=== PATIENT | female | born 1980 | race Caucasian/White ===

== ENCOUNTER 2019-04-27 09:19 | Inpatient (IN) | payer BC ==
[2019-04-27] MEDS ORDERED: fentaNYL 100 MCG/2 ML SDV IVPUSH ONE (09:34)
[2019-04-27] MEDS ORDERED: Ondansetron 4 MG/2 ML SDV IVPUSH ONE (09:35)
--- NOTE | 2019-04-27 09:42 | EDM.PDOC ---
ED HPI GENERAL MEDICAL PROBLEM - General Chief Complaint: Abdominal Pain Stated Complaint: left lower quadrant abdominal pain Time Seen by Provider: 04/27/19 09:30 Source of Information: Reports: Patient, Family History Limitations: Reports: No Limitations - History of Present Illness INITIAL COMMENTS - FREE TEXT/NARRATIVE: Patient to the emergency department today complaining of severe left lower quadrant abdominal pain that started last night. The patient's last bowel movement was today and was brown. There is no blood. There is no black or tarry stools. Denies any UTI type symptoms. The patient has nausea without vomiting. There is no back pain there is no flank pain. There is no fever there is no chills. Denies any other symptoms Onset: Gradual Duration: Day(s): (Last night) Location: Reports: Abdomen Quality: Reports: Ache, Sharp Severity: Severe Improves with: Reports: None Worsens with: Reports: Movement Associated Symptoms: Reports: Nausea/Vomiting (Nausea without vomiting). 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 Denies: Fever, Chills HEENT: Reports: No Symptoms Respiratory: Reports: No Symptoms. Denies: Shortness of Breath, Cough Cardiovascular: Reports: No Symptoms. Denies: Chest Pain GI/Abdominal: Reports: Abdominal Pain, Nausea. Denies: Black Stool, Bloody Stool, Constipation, Diarrhea, Distension, Melena, Mucous in Stool, Vomiting : Reports: No Symptoms. Denies: Discharge, Dysuria, Flank Pain, Frequency, Hematuria, Urgency Musculoskeletal: Reports: No Symptoms. Denies: Neck Pain, Back Pain Skin: Reports: No Symptoms Neurological: Reports: No Symptoms Psychiatric: Reports: No Symptoms ED EXAM, GI/ABD - Physical Exam Exam: See Below Exam Limited By: No Limitations General Appearance: Alert, WD/WN, No Apparent Distress Ears: Normal External Exam Nose: Normal Inspection Throat/Mouth: Normal Inspection, Normal Voice, No Airway Compromise Head: Atraumatic, Normocephalic Neck: Normal Inspection, Supple, Non-Tender, Full Range of Motion Respiratory/Chest: No Respiratory Distress, Lungs Clear, Normal Breath Sounds Cardiovascular: Normal Peripheral Pulses, Regular Rate, Rhythm, No Murmur GI/Abdominal Exam: Soft, No Distention, Tender (Left lower quadrant pain with palpation and guarding). No: Rigid Back Exam: Normal Inspection, Full Range of Motion Extremities: Normal Inspection, Normal Range of Motion, Non-Tender, Normal Capillary Refill Neurological: Alert, Oriented, Normal Cognition, Normal Gait, No Motor/Sensory Deficits Psychiatric: Normal Affect, Normal Mood Skin Exam: Warm, Dry, Intact, Normal Color, No Rash Course - Vital Signs Text/Narrative:: 0940 the patient has been evaluated in the emergency department, the patient will have appropriate blood work completed as well as a CT of the abdomen pelvis with IV and oral contrast to rule out any acute pathology such as colitis , diverticulitis or ovarian issues as well as others 1234 CT the abdomen pelvis is just been completed and there does appear to be a lot of stranding over the sigmoid colon, there also appears to be a large left ovarian cyst. However, the radiology reading is still pending. Based on my preliminary reading, the patient will be started on Flagyl 500 mg IV and Levaquin 750 mg IV and she will be given another dose of Dilaudid IV for pain. Once the official radiology reading is back a disposition will be made however I do suspect this patient will be admitted. 1307 radiologist confirms diverticulitis, no perforation, no abscess, will admit with IV antibx, pain meds and keep pt NPO, will reassess labs in am, Blood cx x 2 are pending Last Recorded V/S: Last Vital Signs Temp 38.3 C H 04/27/19 12:39 Pulse 83 04/27/19 10:21 Resp 24 H 04/27/19 10:21 BP 136/76 04/27/19 10:21 Pulse Ox 100 04/27/19 10:21 - Orders/Labs/Meds Orders: Active Orders 24 hr Category Date Time Status Abdomen Pelvis w Cont [CT] Stat Exams 04/27/19 09:33 Taken Levofloxacin/Dextrose 5%-Water [Levaquin in D5W 750 MG/ Med 04/27/19 12:33 Active 150 ML] 750 mg Premix Bag 1 bag IV ONETIME Sodium Chloride 0.9% [Normal Saline] 1,000 ml Med 04/27/19 09:45 Active IV ASDIRECTED metroNIDAZOLE/Normal Saline [Flagyl 500 MG in NS 100 ML Med 04/27/19 12:32 Active ] 500 mg Premix Bag 1 bag IV ONETIME Medication Orders Sodium Chloride (Normal Saline) 1,000 mls @ 125 mls/hr IV ASDIRECTED ELIJAH Last Admin: 04/27/19 10:15 Dose: 125 mls/hr Metronidazole 500 mg/ Premix 100 mls @ 100 mls/hr IV ONETIME ONE Stop: 04/27/19 13:31 Levofloxacin/Dextrose 750 mg/ (Premix) 150 mls @ 100 mls/hr IV ONETIME ONE Stop: 04/27/19 14:02 Labs: Laboratory Tests 04/27/19 04/27/19 04/27/19 Range/Units 09:32 09:32 09:32 WBC 9.4 (5.0-10.0) 10^3/uL RBC 4.30 (4.00-5.50) 10^6/uL Hgb 14.7 (12.0-16.0) g/dL Hct 41.5 (37.0-47.0) % MCV 96.5 H (82.0-94.0) fL MCH 34.2 H (27.0-32.0) pg MCHC 35.4 (33.0-38.0) g/dL RDW Coeff of Ewa 12.2 (11.0-15.0) % Plt Count 176 (150-400) 10^3/uL Neut % (Auto) 73.1 (35-85) % Lymph % (Auto) 17.3 (10-55) % Hayes % (Auto) 7.5 (0-16) % Eos % (Auto) 1.9 (0-5) % Baso % (Auto) 0.2 (0-3) % Neut # (Auto) 6.87 (1.80-7.00) 10^3/uL Lymph # (Auto) 1.62 (1.00-4.80) 10^3/uL Hayes # (Auto) 0.70 (0.00-0.80) 10^3/uL Eos # (Auto) 0.18 (0.00-0.45) 10^3/uL Baso # (Auto) 0.02 10^3/uL Sodium 141 (136-145) mEq/L Potassium 4.3 (3.5-5.0) mEq/L Chloride 102 (98-106) mEq/L Carbon Dioxide 28 (21-32) mmol/L BUN 10 (7-18) mg/dL Creatinine 0.7 (0.6-1.0) mg/dL Est Cr Clr Drug Dosing 109.92 mL/min Estimated GFR (MDRD) > 60 (>=60) mL/min Glucose 88 (75-99) mg/dL Lactic Acid (0.4-2.0) mmol/L Calcium 8.5 (8.4-10.1) mg/dL Total Bilirubin 0.7 (0.0-1.0) mg/dL AST 76 H (15-37) U/L ALT 79 H (12-78) U/L Alkaline Phosphatase 109 (46-116) U/L C-Reactive Protein 2.0 H (0.2-0.8) mg/dL Total Protein 6.9 (6.4-8.2) g/dL Albumin 3.5 (3.4-5.0) g/dL Urine Color Yellow (YELLOW) Urine Appearance Clear (CLEAR) Urine pH 7.0 (4.5-8.0) Ur Specific [place] 1.015 (1.003-1.020) Urine Protein Negative (NEGATIVE) mg/dL Urine Glucose (UA) Negative (NEGATIVE) mg/dL Urine Ketones Negative (NEGATIVE) mg/dL Urine Occult Blood Negative (NEGATIVE) Urine Nitrite Negative (NEGATIVE) Urine Bilirubin Negative (NEGATIVE) Urine Urobilinogen 0.2 (0.2-1.0) EU/dL Ur Leukocyte Esterase Negative (NEGATIVE) Urine HCG, Qual 04/27/19 04/27/19 Range/Units 09:33 10:09 WBC (5.0-10.0) 10^3/uL RBC (4.00-5.50) 10^6/uL Hgb (12.0-16.0) g/dL Hct (37.0-47.0) % MCV (82.0-94.0) fL MCH (27.0-32.0) pg MCHC (33.0-38.0) g/dL RDW Coeff of Ewa (11.0-15.0) % Plt Count (150-400) 10^3/uL Neut % (Auto) (35-85) % Lymph % (Auto) (10-55) % Hayes % (Auto) (0-16) % Eos % (Auto) (0-5) % Baso % (Auto) (0-3) % Neut # (Auto) (1.80-7.00) 10^3/uL Lymph # (Auto) (1.00-4.80) 10^3/uL Hayes # (Auto) (0.00-0.80) 10^3/uL Eos # (Auto) (0.00-0.45) 10^3/uL Baso # (Auto) 10^3/uL Sodium (136-145) mEq/L Potassium (3.5-5.0) mEq/L Chloride (98-106) mEq/L Carbon Dioxide (21-32) mmol/L BUN (7-18) mg/dL Creatinine (0.6-1.0) mg/dL Est Cr Clr Drug Dosing mL/min Estimated GFR (MDRD) (>=60) mL/min Glucose (75-99) mg/dL Lactic Acid 1.1 (0.4-2.0) mmol/L Calcium (8.4-10.1) mg/dL Total Bilirubin (0.0-1.0) mg/dL AST (15-37) U/L ALT (12-78) U/L Alkaline Phosphatase (46-116) U/L C-Reactive Protein (0.2-0.8) mg/dL Total Protein (6.4-8.2) g/dL Albumin (3.4-5.0) g/dL Urine Color (YELLOW) Urine Appearance (CLEAR) Urine pH (4.5-8.0) Ur Specific [place] (1.003-1.020) Urine Protein (NEGATIVE) mg/dL Urine Glucose (UA) (NEGATIVE) mg/dL Urine Ketones (NEGATIVE) mg/dL Urine Occult Blood (NEGATIVE) Urine Nitrite (NEGATIVE) Urine Bilirubin (NEGATIVE) Urine Urobilinogen (0.2-1.0) EU/dL Ur Leukocyte Esterase (NEGATIVE) Urine HCG, Qual Negative Meds: Medications Generic Name Dose Route Start Last Admin Trade Name Torri PRN Reason Stop Dose Admin Sodium Chloride 1,000 mls @ 125 mls/hr 04/27/19 09:45 04/27/19 10:15 Normal Saline IV 125 mls/hr ASDIRECTED ELIJAH Administration Metronidazole 500 mg/ Premix 100 mls @ 100 mls/hr 04/27/19 12:32 IV 04/27/19 13:31 ONETIME ONE Levofloxacin/Dextrose 750 mg/ 150 mls @ 100 mls/hr 04/27/19 12:33 Premix IV 04/27/19 14:02 ONETIME ONE Discontinued Medications Generic Name Dose Route Start Last Admin Trade Name Torri PRN Reason Stop Dose Admin Acetaminophen 650 mg 04/27/19 10:28 04/27/19 10:45 Tylenol PO 04/27/19 10:29 650 mg NOW ONE Administration Barium Sulfate 900 ml 04/27/19 12:30 04/27/19 12:32 Readi-Cat 2 PO 04/27/19 12:31 900 ml ONETIME ONE Administration Fentanyl 50 mcg 04/27/19 09:34 04/27/19 09:45 Sublimaze IVPUSH 04/27/19 09:35 50 mcg ONETIME ONE Administration Hydromorphone HCl 1 mg 04/27/19 10:28 04/27/19 10:45 Dilaudid IVPUSH 04/27/19 10:29 1 mg ONETIME ONE Administration Hydromorphone HCl 1 mg 04/27/19 12:34 Dilaudid IVPUSH 04/27/19 12:35 ONETIME ONE Iopamidol 100 ml 04/27/19 12:30 04/27/19 12:32 Isovue-370 (76%) IVPUSH 04/27/19 12:31 100 ml ONETIME ONE Administration Ondansetron HCl 4 mg 04/27/19 09:35 04/27/19 09:44 Zofran IVPUSH 04/27/19 09:36 4 mg ONETIME ONE Administration Departure - Departure Time of Disposition: 13:08 Disposition: Admitted As Inpatient 66 Condition: Good Clinical Impression: Abdominal pain, Sigmoid diverticulitis, Fever - Discharge Information *PRESCRIPTION DRUG MONITORING PROGRAM REVIEWED*: Not Applicable *COPY OF PRESCRIPTION DRUG MONITORING REPORT IN PATIENT DOMINIQUE: Not Applicable Referrals: PCP,Unknown [Primary Care Provider] - Forms: ED Department Discharge Sepsis Event Note - Evaluation Sepsis Screening Result: No Definite Risk - Focused Exam Vital Signs: Vital Signs Temp Pulse Resp BP Pulse Ox 04/27/19 12:39 38.3 C H 04/27/19 10:50 38.1 C 04/27/19 10:21 38.2 C H 83 24 H 136/76 100 04/27/19 09:27 35.9 C 90 24 H 138/86 96 Date Exam was Performed: 04/27/19 Time Exam was Performed: 13:07 - Problem List & Annotations (1) Abdominal pain SNOMED Code(s): 95648066 Code(s): R10.9 - UNSPECIFIED ABDOMINAL PAIN Status: Acute Priority: High Current Visit: Yes Qualifiers: Abdominal location: left lower quadrant Qualified Code(s): R10.32 - Left lower quadrant pain (2) Fever SNOMED Code(s): 391511632 Code(s): R50.9 - FEVER, UNSPECIFIED Status: Acute Priority: Medium Current Visit: Yes Qualifiers: Fever type: unspecified Qualified Code(s): R50.9 - Fever, unspecified (3) Sigmoid diverticulitis SNOMED Code(s): 124225075 Code(s): K57.32 - DVTRCLI OF LG INT W/O PERFORATION OR ABSCESS W/O BLEEDING Status: Acute Priority: High Current Visit: Yes - Problem List Review Problem List Initiated/Reviewed/Updated: Yes - My Orders Last 24 Hours: My Active Orders 04/27/19 09:33 Abdomen Pelvis w Cont [CT] Stat 04/27/19 09:45 Sodium Chloride 0.9% [Normal Saline] 1,000 ml IV ASDIRECTED 04/27/19 12:32 metroNIDAZOLE/Normal Saline [Flagyl 500 MG in NS 100 ML] 500 mg Premix Bag 1 bag IV ONETIME 04/27/19 12:33 Levofloxacin/Dextrose 5%-Water [Levaquin in D5W 750 MG/150 ML] 750 mg Premix Bag 1 bag IV ONETIME - Assessment/Plan Admission H&P: Please use this note as an admission H&P Last 24 Hours: My Active Orders 04/27/19 09:33 Abdomen Pelvis w Cont [CT] Stat 04/27/19 09:45 Sodium Chloride 0.9% [Normal Saline] 1,000 ml IV ASDIRECTED 04/27/19 12:32 metroNIDAZOLE/Normal Saline [Flagyl 500 MG in NS 100 ML] 500 mg Premix Bag 1 bag IV ONETIME 04/27/19 12:33 Levofloxacin/Dextrose 5%-Water [Levaquin in D5W 750 MG/150 ML] 750 mg Premix Bag 1 bag IV ONETIME Plan: as above
[2019-04-27] MEDS: Sodium Chloride 0.9% 1,000 ML IV SCH ×2 (10:15→21:07)
[2019-04-27 10:17] LABS: CHLORIDE,CL 102 mEq/L (98-106); SODIUM,NA 141 mEq/L (136-145)
[2019-04-27] MEDS ORDERED: HYDROmorphone 1 MG/ML Syringe IVPUSH ONE ×2 (10:28→12:34)
[2019-04-27] MEDS ORDERED: Acetaminophen 325 MG Tab PO ONE (10:28)
[2019-04-27] MEDS ORDERED: Iopamidol 755 Mg/ML 100 ML Bottle IVPUSH ONE (12:30)
[2019-04-27] MEDS ORDERED: Barium Sulfate Oral Susp 450 ML Bottle PO ONE (12:30)
[2019-04-27] MEDS ORDERED: metroNIDAZOLE/Normal Saline 500 MG in Premix Bag 1 BAG IV ONE (12:32)
[2019-04-27] MEDS ORDERED: Levofloxacin/Dextrose 5%-Water 750 MG in Premix Bag 1 BAG IV ONE (12:33)
[2019-04-27] MEDS ORDERED: Ondansetron 4 MG Tab.DIS PO PRN (13:12)
[2019-04-27] MEDS ORDERED: Sodium Chloride 0.9% 1,000 ML IV SCH (13:15)
[2019-04-27] MEDS: metroNIDAZOLE/Normal Saline 500 MG in Premix Bag 1 BAG IV SCH ×2 (13:53→21:09)
[2019-04-27] MEDS: Enoxaparin 40 MG/0.4 ML Syringe SUBCUT SCH (13:56)
[2019-04-27] MEDS: HYDROmorphone 1 MG/ML Syringe IVPUSH PRN ×3 (14:54→23:35)
[2019-04-27] MEDS: Acetaminophen 325 MG Tab PO PRN ×2 (14:56→19:24)
[2019-04-27] MEDS: Citalopram 10 MG Tab PO SCH (19:26)
[2019-04-28] MEDS: Acetaminophen 325 MG Tab PO PRN ×4 (02:56→23:14)
[2019-04-28] MEDS: Sodium Chloride 0.9% 1,000 ML IV SCH ×2 (05:26→17:09)
[2019-04-28] MEDS: metroNIDAZOLE/Normal Saline 500 MG in Premix Bag 1 BAG IV SCH ×3 (05:28→21:07)
[2019-04-28] MEDS: HYDROmorphone 1 MG/ML Syringe IVPUSH PRN ×3 (07:57→18:31)
[2019-04-28] MEDS: Enoxaparin 40 MG/0.4 ML Syringe SUBCUT SCH (14:01)
[2019-04-28] MEDS: Levofloxacin/Dextrose 5%-Water 750 MG in Premix Bag 1 BAG IV SCH (15:37)
[2019-04-28] MEDS: Citalopram 10 MG Tab PO SCH (19:52)
[2019-04-28] MEDS ORDERED: Temazepam 15 MG Cap PO PRN (21:18)
--- NOTE | 2019-04-28 21:35 | PCM.PN ---
- General Info Date of Service: 04/28/19 Admission Dx/Problem (Free Text): Diverticulitis Functional Status: Reports: Pain Controlled, Tolerating Diet, Ambulating - Review of Systems General: Reports: Fever, Weakness, Fatigue, Malaise HEENT: Reports: No Symptoms Pulmonary: Denies: Shortness of Breath, Cough Cardiovascular: Denies: Chest Pain, Edema, Lightheadedness Gastrointestinal: Reports: Abdominal Pain. Denies: Hematochezia, Melena, Nausea , Vomiting Genitourinary: Reports: No Symptoms Musculoskeletal: Reports: No Symptoms Skin: Reports: No Symptoms Neurological: Reports: No Symptoms - Patient Data Vitals - Most Recent: Last Vital Signs Temp 98.5 F 04/28/19 20:00 Pulse 88 04/28/19 20:00 Resp 20 04/28/19 20:00 BP 125/75 04/28/19 20:00 Pulse Ox 97 04/28/19 20:00 Weight - Most Recent: 262 lb 12.656 oz I&O - Last 24 Hours: Intake & Output 04/28/19 04/28/19 04/28/19 06:59 14:59 22:59 Intake Total 1100 1000 1850 Output Total 730 196 7521 Balance 650 400 150 Jb Results Last 24 Hours: Microbiology 04/27/19 13:07 Aerobic Blood Culture - Preliminary Blood NO GROWTH AFTER 1 DAY Anaerobic Blood Culture - Preliminary NO GROWTH AFTER 1 DAY 04/27/19 13:07 Aerobic Blood Culture - Preliminary Blood NO GROWTH AFTER 1 DAY Anaerobic Blood Culture - Preliminary NO GROWTH AFTER 1 DAY Med Orders - Current: Current Medications Acetaminophen (Tylenol) 650 mg PO Q4H PRN PRN Reason: Pain (Mild 1-3)/fever Last Admin: 04/28/19 15:29 Dose: 650 mg Citalopram Hydrobromide (Celexa) 40 mg PO BEDTIME ELIJAH Last Admin: 04/28/19 19:52 Dose: 40 mg Enoxaparin Sodium (Lovenox) 40 mg SUBCUT Q24H ELIJAH Last Admin: 04/28/19 14:01 Dose: 40 mg Hydromorphone HCl (Dilaudid) 1 mg IVPUSH Q4H PRN PRN Reason: Pain (moderate 4-6) Last Admin: 04/28/19 18:31 Dose: 1 mg Sodium Chloride (Normal Saline) 1,000 mls @ 125 mls/hr IV ASDIRECTED [facility] Last Admin: 04/28/19 17:09 Dose: 125 mls/hr Levofloxacin/Dextrose 750 mg/ (Premix) 150 mls @ 100 mls/hr IV Q24H [facility] Last Admin: 04/28/19 15:37 Dose: 100 mls/hr Metronidazole 500 mg/ Premix 100 mls @ 100 mls/hr IV Q8H [facility] Last Admin: 04/28/19 21:07 Dose: 100 mls/hr Sodium Chloride (Normal Saline) 1,000 mls @ 125 mls/hr IV ASDIRECTED [facility] Ondansetron HCl (Zofran Odt) 4 mg PO Q6H PRN PRN Reason: nausea, able to take PO Temazepam (Restoril) 15 mg PO BEDTIME PRN PRN Reason: Sleep Discontinued Medications Acetaminophen (Tylenol) 650 mg PO NOW ONE Stop: 04/27/19 10:29 Last Admin: 04/27/19 10:45 Dose: 650 mg Barium Sulfate (Readi-Cat 2) 900 ml PO ONETIME ONE Stop: 04/27/19 12:31 Last Admin: 04/27/19 12:32 Dose: 900 ml Fentanyl (Sublimaze) 50 mcg IVPUSH ONETIME ONE Stop: 04/27/19 09:35 Last Admin: 04/27/19 09:45 Dose: 50 mcg Hydromorphone HCl (Dilaudid) 1 mg IVPUSH ONETIME ONE Stop: 04/27/19 10:29 Last Admin: 04/27/19 10:45 Dose: 1 mg Hydromorphone HCl (Dilaudid) 1 mg IVPUSH ONETIME ONE Stop: 04/27/19 12:35 Last Admin: 04/27/19 13:26 Dose: Not Given Metronidazole 500 mg/ Premix 100 mls @ 100 mls/hr IV ONETIME ONE Stop: 04/27/19 13:31 Last Admin: 04/27/19 13:22 Dose: 100 mls/hr Levofloxacin/Dextrose 750 mg/ (Premix) 150 mls @ 100 mls/hr IV ONETIME ONE Stop: 04/27/19 14:02 Last Admin: 04/27/19 13:54 Dose: 100 mls/hr Iopamidol (Isovue-370 (76%)) 100 ml IVPUSH ONETIME ONE Stop: 04/27/19 12:31 Last Admin: 04/27/19 12:32 Dose: 100 ml Ondansetron HCl (Zofran) 4 mg IVPUSH ONETIME ONE Stop: 04/27/19 09:36 Last Admin: 04/27/19 09:44 Dose: 4 mg - Exam General: Alert, Oriented HEENT: Mucous Membr. Moist/[place] Neck: Supple Lungs: Clear to Auscultation, Normal Respiratory Effort Cardiovascular: Regular Rate, Regular Rhythm GI/Abdominal Exam: Normal Bowel Sounds, Soft, Guarding, Tender (LLQ) Extremities: Normal Inspection, No Pedal Edema Skin: Warm, Dry Neurological: No New Focal Deficit Sepsis Event Note - Evaluation Sepsis Screening Result: No Definite Risk - Focused Exam Vital Signs: Vital Signs Temp Pulse Resp BP Pulse Ox 04/28/19 20:00 98.5 F 88 20 125/75 97 04/28/19 16:00 100.8 F H 82 24 H 115/68 96 04/28/19 12:00 100.4 F 88 16 146/80 H 97 04/28/19 11:06 100.3 F Date Exam was Performed: 04/28/19 Time Exam was Performed: 21:30 - Problem List & Annotations (1) Fever SNOMED Code(s): 836527909 Code(s): R50.9 - FEVER, UNSPECIFIED Status: Acute Priority: High Current Visit: Yes Qualifiers: Fever type: unspecified Qualified Code(s): R50.9 - Fever, unspecified (2) Sigmoid diverticulitis SNOMED Code(s): 793287007 Code(s): K57.32 - DVTRCLI OF LG INT W/O PERFORATION OR ABSCESS W/O BLEEDING Status: Acute Priority: High Current Visit: Yes - Problem List Review Problem List Initiated/Reviewed/Updated: Yes - My Orders Last 24 Hours: My Active Orders 04/28/19 Lunch Advance Diet Instructions [DIET] - Assessment Assessment:: Diverticulitis - Plan Plan:: Patient continues to have abdominal pain but is controlled with Dilaudid and is using much less often as yesterday. Continues to have low grade fever. Very tender yet to LLQ with palpation. Has been NPO since admission. IV fluids infusing at 125 ml/hr. Blood pressure stable at 105/65. Blood cultures are negative thus far. Will continue with IV Dilaudid as needed for pain control. IV Levaquin and Flagyl. Start clear liquids and advance as tolerated. Repeat labs in am.
[2019-04-29] MEDS: Sodium Chloride 0.9% 1,000 ML IV SCH (01:13)
[2019-04-29] MEDS: metroNIDAZOLE/Normal Saline 500 MG in Premix Bag 1 BAG IV SCH ×2 (05:41→14:04)
[2019-04-29 07:12] LABS: CHLORIDE,CL 105 mEq/L (98-106); SODIUM,NA 141 mEq/L (136-145)
[2019-04-29] MEDS: Acetaminophen 325 MG Tab PO PRN ×2 (07:42→12:28)
[2019-04-29] MEDS: Enoxaparin 40 MG/0.4 ML Syringe SUBCUT SCH (12:29)
[2019-04-29] MEDS: Levofloxacin/Dextrose 5%-Water 750 MG in Premix Bag 1 BAG IV SCH (12:30)
--- NOTE | 2019-04-29 15:02 | PCM.DCSUM1 ---
Discharge Summary - Hospital Course Free Text/Narrative:: Edgar is a 39 year old who presented to the ER with complaints of severe left lower quadrant abdominal pain. No black or tarry stools, no bowel changes. Nauseated but no vomiting. No back or flank pain. No urinary symptoms. Patient had not had any fevers. WBC normal at 9.4, CRP of 2.0. CT scan of abdomen was done that did show acute diverticulitis of the sigmoid colon. Did not get relief of pain from Fentanyl, given several doses of Dilaudid before able to get relief. Admitted and started on Levaquin and Flagyl. Diagnosis: Stroke: No Modified [place] Scale: No Symptoms at All Modified [place] Scale Score: 0 - Discharge Data Discharge Date: 04/29/19 Discharge Disposition: Home, Self-Care 01 Condition: Good - Referral to Home Health Primary Care Physician: PCP Unobtainable - Discharge Diagnosis/Problem(s) (1) Fever SNOMED Code(s): 381885141 ICD Code: R50.9 - FEVER, UNSPECIFIED Status: Acute Priority: High Qualifiers: Fever type: unspecified Qualified Code(s): R50.9 - Fever, unspecified (2) Sigmoid diverticulitis SNOMED Code(s): 989047775 ICD Code: K57.32 - DVTRCLI OF LG INT W/O PERFORATION OR ABSCESS W/O BLEEDING Status: Acute Priority: High - Patient Summary/Data Complications: none Hospital Course: Patient is feeling much better. Has had low grade fevers through stay, improved this am. No nausea or vomiting. Pain is reduced to a low dull pain in LLQ. Has had normal bowel movement since admission. Diet has been advanced from clear liquids to regular and has tolerated well. She is up and ambulatory , tolerating well with [place]. Information on diverticulitis and diet given to patient. WBC has remained normal, CRP did increase to 17. Will discharge home on Levaquin and Flagyl. [place] for pain. Follow up with Mihaela Pena in 10 days. May need to consider colonoscopy once infection has improved. - Patient Instructions Diet: Usual Diet as Tolerated Activity: As Tolerated - Discharge Plan *PRESCRIPTION DRUG MONITORING PROGRAM REVIEWED*: Not Applicable *COPY OF PRESCRIPTION DRUG MONITORING REPORT IN PATIENT DOMINIQUE: Not Applicable Prescriptions/Med Rec: Hydrocodone/Acetaminophen [[place] 5-325 Tablet] 1 each PO Q6H #30 tablet Levofloxacin [Levaquin] 500 mg PO DAILY #10 tablet metroNIDAZOLE [Flagyl] 500 mg PO Q8H #30 tab Home Medications: Home Meds Escitalopram Oxalate [Lexapro] 20 mg PO DAILY 04/27/19 [History] Hydrocodone/Acetaminophen [[place] 5-325 Tablet] 1 each PO Q6H #30 tablet [Rx] Levofloxacin [Levaquin] 500 mg PO DAILY #10 tablet 04/29/19 [Rx] metroNIDAZOLE [Flagyl] 500 mg PO Q8H #30 tab 04/29/19 [Rx] Patient Handouts: Diverticulitis Forms: ED Department Discharge Referrals: Mihaela Pena PA-C [ED Midlevel Provider] - (Follow up with Mihaela Pena in 10 days ) - Discharge Summary/Plan Comment DC Time >30 min.: No - General Info Date of Service: 04/29/19 Admission Dx/Problem (Free Text: Diverticulitis Functional Status: Reports: Pain Controlled, Tolerating Diet, Ambulating, Urinating - Review of Systems General: Reports: Fever, Fatigue, Malaise HEENT: Reports: No Symptoms Pulmonary: Denies: Shortness of Breath, Cough Cardiovascular: Denies: Chest Pain, Edema, Lightheadedness Gastrointestinal: Reports: Abdominal Pain. Denies: Hematochezia, Melena, Nausea , Vomiting Genitourinary: Reports: No Symptoms Musculoskeletal: Reports: No Symptoms Skin: Reports: No Symptoms Neurological: Reports: No Symptoms - Patient Data Vitals - Most Recent: Last Vital Signs Temp 100 F 04/29/19 12:00 Pulse 87 04/29/19 12:00 Resp 20 04/29/19 12:00 BP 128/79 04/29/19 12:00 Pulse Ox 99 04/29/19 12:00 Weight - Most Recent: 262 lb 12.656 oz I&O - Last 24 hours: Intake & Output 04/29/19 04/29/19 04/29/19 06:59 14:59 22:59 Intake Total 1980 Output Total 1700 Balance 280 Lab Results - Last 24 hrs: Laboratory Results - last 24 hr 04/29/19 04/29/19 Range/Units 06:45 06:45 WBC 8.4 (5.0-10.0) 10^3/uL RBC 3.79 L (4.00-5.50) 10^6/uL Hgb 12.8 (12.0-16.0) g/dL Hct 37.1 (37.0-47.0) % MCV 97.9 H (82.0-94.0) fL MCH 33.8 H (27.0-32.0) pg MCHC 34.5 (33.0-38.0) g/dL RDW Coeff of Ewa 12.2 (11.0-15.0) % Plt Count 149 L (150-400) 10^3/uL Neut % (Auto) 78.4 (35-85) % Lymph % (Auto) 11.4 (10-55) % Jay % (Auto) 8.1 (0-16) % Eos % (Auto) 1.9 (0-5) % Baso % (Auto) 0.2 (0-3) % Neut # (Auto) 6.55 (1.80-7.00) 10^3/uL Lymph # (Auto) 0.95 L (1.00-4.80) 10^3/uL Jay # (Auto) 0.68 (0.00-0.80) 10^3/uL Eos # (Auto) 0.16 (0.00-0.45) 10^3/uL Baso # (Auto) 0.02 10^3/uL Sodium 141 (136-145) mEq/L Potassium 4.0 (3.5-5.0) mEq/L Chloride 105 (98-106) mEq/L Carbon Dioxide 27 (21-32) mmol/L BUN 3 L D (7-18) mg/dL Creatinine 0.6 (0.6-1.0) mg/dL Est Cr Clr Drug Dosing 128.24 mL/min Estimated GFR (MDRD) > 60 (>=60) mL/min Glucose 94 (75-99) mg/dL Calcium 8.1 L (8.4-10.1) mg/dL C-Reactive Protein 17.5 H (0.2-0.8) mg/dL BRYAN Results - Last 24 hrs: Microbiology 04/27/19 13:07 Aerobic Blood Culture - Preliminary Blood NO GROWTH AFTER 2 DAYS Anaerobic Blood Culture - Preliminary NO GROWTH AFTER 2 DAYS 04/27/19 13:07 Aerobic Blood Culture - Preliminary Blood NO GROWTH AFTER 2 DAYS Anaerobic Blood Culture - Preliminary NO GROWTH AFTER 2 DAYS Med Orders - Current: Current Medications Acetaminophen (Tylenol) 650 mg PO Q4H PRN PRN Reason: Pain (Mild 1-3)/fever Last Admin: 04/29/19 12:28 Dose: 650 mg Citalopram Hydrobromide (Celexa) 40 mg PO BEDTIME [facility] Last Admin: 04/28/19 19:52 Dose: 40 mg Enoxaparin Sodium (Lovenox) 40 mg SUBCUT Q24H [facility] Last Admin: 04/29/19 12:29 Dose: 40 mg Hydromorphone HCl (Dilaudid) 1 mg IVPUSH Q4H PRN PRN Reason: Pain (moderate 4-6) Last Admin: 04/28/19 18:31 Dose: 1 mg Sodium Chloride (Normal Saline) 1,000 mls @ 125 mls/hr IV ASDIRECTED [facility] Last Admin: 04/29/19 01:13 Dose: 125 mls/hr Levofloxacin/Dextrose 750 mg/ (Premix) 150 mls @ 100 mls/hr IV Q24H [facility] Last Admin: 04/29/19 12:30 Dose: 100 mls/hr Metronidazole 500 mg/ Premix 100 mls @ 100 mls/hr IV Q8H [facility] Last Admin: 04/29/19 05:41 Dose: 100 mls/hr Sodium Chloride (Normal Saline) 1,000 mls @ 125 mls/hr IV ASDIRECTED [facility] Ondansetron HCl (Zofran Odt) 4 mg PO Q6H PRN PRN Reason: nausea, able to take PO Temazepam (Restoril) 15 mg PO BEDTIME PRN PRN Reason: Sleep Last Admin: 04/28/19 22:07 Dose: 15 mg Discontinued Medications Acetaminophen (Tylenol) 650 mg PO NOW ONE Stop: 04/27/19 10:29 Last Admin: 04/27/19 10:45 Dose: 650 mg Barium Sulfate (Readi-Cat 2) 900 ml PO ONETIME ONE Stop: 04/27/19 12:31 Last Admin: 04/27/19 12:32 Dose: 900 ml Fentanyl (Sublimaze) 50 mcg IVPUSH ONETIME ONE Stop: 04/27/19 09:35 Last Admin: 04/27/19 09:45 Dose: 50 mcg Hydromorphone HCl (Dilaudid) 1 mg IVPUSH ONETIME ONE Stop: 04/27/19 10:29 Last Admin: 04/27/19 10:45 Dose: 1 mg Hydromorphone HCl (Dilaudid) 1 mg IVPUSH ONETIME ONE Stop: 04/27/19 12:35 Last Admin: 04/27/19 13:26 Dose: Not Given Metronidazole 500 mg/ Premix 100 mls @ 100 mls/hr IV ONETIME ONE Stop: 04/27/19 13:31 Last Admin: 04/27/19 13:22 Dose: 100 mls/hr Levofloxacin/Dextrose 750 mg/ (Premix) 150 mls @ 100 mls/hr IV ONETIME ONE Stop: 04/27/19 14:02 Last Admin: 04/27/19 13:54 Dose: 100 mls/hr Iopamidol (Isovue-370 (76%)) 100 ml IVPUSH ONETIME ONE Stop: 04/27/19 12:31 Last Admin: 04/27/19 12:32 Dose: 100 ml Ondansetron HCl (Zofran) 4 mg IVPUSH ONETIME ONE Stop: 04/27/19 09:36 Last Admin: 04/27/19 09:44 Dose: 4 mg - Exam General: Reports: Alert, Oriented HEENT: Reports: Mucous Membr. Moist/[place] Neck: Reports: Supple Lungs: Reports: Clear to Auscultation, Normal Respiratory Effort Cardiovascular: Reports: Regular Rate, Regular Rhythm GI/Abdominal Exam: Normal Bowel Sounds, Soft, Tender (LLQ but much less guarded than yesterday) Extremities: Normal Inspection, No Pedal Edema Skin: Reports: Warm, Dry Neurological: Reports: No New Focal Deficit
== END 2019-04-29 16:13 | disposition home or self-care (01) | DRG 244 ==
LOC: CC.ED 09:19 → CC.MS 13:10 → UNDOADMIN 13:12 → CC.MS 13:12 → CC.ED 13:36
PROVIDERS: ADMIT Nurse Practitioner; ATTEND Family Medicine
DX: K57.32 Diverticulitis of large intestine without perforation or abscess without bleeding (principal); N83.202 Unspecified ovarian cyst, left side; Z79.899 Other long term (current) drug therapy; Z88.2 Allergy status to sulfonamides; Z88.1 Allergy status to other antibiotic agents
CPT/HCPCS: 36415; 74177; 80048; 80053; 81003; 81025; 83605; 85025; 86140; 87040; 96374; 96375; 99285-25; A9270-GY; J1170; J1650; J1956; J2405; J3010; J3490; J7030; Q9967

== ENCOUNTER → 2019-06-17 | Day surgery (SDC) | payer BC ==
[~2019-06-17] MED LIST: Lactated Ringers 1,000 ML IV SCH; Midazolam 1 MG/ML 2 ML SDV IV ONE; Phenylephrine 1% 10 MG/ML SDV IV ONE; Propofol 200 MG/20 ML SDV IV ONE; fentaNYL 100 MCG/2 ML SDV IV ONE
--- NOTE | 2019-06-20 11:51 | OR ---
DATE OF OPERATION: 06/17/2019 PREOPERATIVE DIAGNOSIS: LEFT LOWER QUADRANT COLITIS. POSTOPERATIVE DIAGNOSIS: 1. DIVERTICULOSIS WITH RESOLVING DIVERTICULITIS. 2. SMALL RECTAL POLYP. SURGEON: George Coburn MD PROCEDURE: FULL-LENGTH COLONOSCOPY WITH BIOPSIES X3, FORCEPS POLYP REMOVAL X1. ANESTHESIA: MAC. COMPLICATIONS: None. SPECIMEN: 1. Sigmoid biopsy x3. 2. Villous polyp, rectal vault, approximately 4 to 5 mm. FINDINGS: 1. Full-length colonoscopy. 2. Mild sigmoid diverticulosis with what appears to be resolving diverticulitis, minimal evidence of. 3. Small 4 to 5 mm rectal polyp, villous, removed in its entirety with forceps. RECOMMENDATIONS: Routine followup for biopsy reports. Followup colonoscopy in 5 years given polyp removal. INDICATIONS: The patient has had multiple episodes of diverticulitis, most recently approximately 2 weeks ago. We elected to proceed with a diagnostic scope. DESCRIPTION OF PROCEDURE: The patient was prepped and draped, placed in the left lateral decubitus position. A lubricated Olympus colonoscope was inserted and easily advanced to the cecum. Direct visualization of the ileocecal valve and appendiceal orifice was accomplished. The bowel prep was adequate. Upon withdrawal of the scope, the cecum, ascending, transverse, and descending colon were completely benign. On the sigmoid colon, had some scattered diverticula from its mid to distal portion or near the rectosigmoid junction, mild in severity. At around 50 cm, the patient had about a 15 cm segment that had some very mild residual signs of colitis, likely related to her diverticula. No ulceration, bleeding sites, etc. We did do 3 biopsies of the affected area without any complication. The rectal vault appeared benign in its most distal portion. The patient had a small, flat, villous polyp about 4 to 5 mm, removed in its entirety with 2 forceps biopsies. Retroflexion showed no other perianal lesions. Air was then suctioned, scope removed without complication. DARIUSZ/DELORIS /[id number]
== END ==
LOC: CC.SDS 11:08
PROVIDERS: ATTEND Family Medicine
DX: D12.8 Benign neoplasm of rectum (principal); K57.32 Diverticulitis of large intestine without perforation or abscess without bleeding; K57.30 Diverticulosis of large intestine without perforation or abscess without bleeding; K21.9 Gastro-esophageal reflux disease without esophagitis; E66.9 Obesity, unspecified; Z68.41 Body mass index [BMI] 40.0-44.9, adult; Z88.2 Allergy status to sulfonamides
CPT/HCPCS: 36415; 45380; 84703; J2250; J2370; J2704; J3010; J7120

== ENCOUNTER 2020-04-23 08:24 | Inpatient (IN) | payer BC ==
[2020-04-23] MEDS ORDERED: Ketorolac 30 MG/ML SDV IVPUSH ONE (08:56)
[2020-04-23] MEDS ORDERED: Lactated Ringers 1,000 ML IV ONE (08:57)
[2020-04-23] MEDS: Ondansetron 4 MG/2 ML SDV IVPUSH PRN ×2 (09:06→15:38)
[2020-04-23] MEDS ORDERED: Iopamidol 755 Mg/ML 100 ML Bottle IVPUSH ONE (09:13)
[2020-04-23] MEDS ORDERED: Iopamidol 755 Mg/ML 200 ML Bottle IV ONE (09:20)
[2020-04-23 09:25] LABS: CHLORIDE,CL 98 mEq/L (98-106); SODIUM,NA 137 mEq/L (136-145)
[2020-04-23] MEDS ORDERED: HYDROmorphone 1 MG/ML Syringe IVPUSH ONE ×3 (09:53→13:59)
[2020-04-23] MEDS: Lactated Ringers 1,000 ML IV SCH ×2 (10:39→19:35)
[2020-04-23] MEDS ORDERED: Barium Sulfate Oral Susp 450 ML Bottle PO ONE (11:48)
[2020-04-23] MEDS ORDERED: metroNIDAZOLE/Normal Saline 500 MG in Premix Bag 1 BAG IV ONE (12:18)
[2020-04-23] MEDS ORDERED: Levofloxacin/Dextrose 5%-Water 500 MG in Premix Bag 1 BAG IV ONE (12:19)
[2020-04-23] MEDS ORDERED: Ketorolac 30 MG/ML SDV IVPUSH PRN (14:49)
[2020-04-23] MEDS ORDERED: Polyethylene Glycol 3350 Powder 17 GM Packet PO PRN (14:49)
[2020-04-23] MEDS ORDERED: Docusate Sodium 100 MG Cap PO PRN (14:49)
[2020-04-23] MEDS ORDERED: Ibuprofen 200 MG Tab PO PRN (14:49)
[2020-04-23] MEDS: Acetaminophen 325 MG Tab PO PRN (15:47)
[2020-04-23] MEDS: HYDROmorphone 1 MG/ML Syringe IVPUSH PRN ×2 (16:35→19:55)
--- NOTE | 2020-04-23 17:02 | EDM.PDOC ---
ED HPI GENERAL MEDICAL PROBLEM - General Chief Complaint: Abdominal Pain Stated Complaint: ABD PAIN Time Seen by Provider: 04/23/20 08:58 Source of Information: Reports: Patient History Limitations: Reports: No Limitations - History of Present Illness INITIAL COMMENTS - FREE TEXT/NARRATIVE: Edgar is a 39 year old female who presents to the ED with c/o severe left lower abdominal pain. Has history of diverticulitis and reports she ate popcorn on Thursday. She reports pain started yesterday and has worsened since. She reports she had some "left over Augmentin" from last time so she started that yesterday as she was trying to avoid coming to the ED. Has not had any fevers. Does report she had one emesis this morning. Does feel nauseated. Did not eat yesterday. Did have diarrhea x2 over the weekend. She otherwise is without complaints. Onset Date: 04/22/20 Duration: Getting Worse Location: Reports: Abdomen (LLQ) Quality: Reports: Sharp Severity: Severe Improves with: Reports: None Worsens with: Reports: Movement Associated Symptoms: Reports: Loss of Appetite, Nausea/Vomiting. Denies: Fever/Chills Left Abdominal Pain Score (Numeric/FACES): 7 - Related Data Allergies Allergy/AdvReac Type Severity Reaction Status Date / Time sulfamethoxazole Allergy Cannot Verified 04/23/20 08:36 [From Bactrim] Remember trimethoprim [From Bactrim] Allergy Cannot Verified 04/23/20 08:36 Remember Home Meds: Home Meds Escitalopram Oxalate [Lexapro] 20 mg PO DAILY 04/27/19 [History] Past Medical History Gastrointestinal History: Reports: Diverticulosis Psychiatric History: Reports: Anxiety - Past Surgical History GI Surgical History: Reports: Cholecystectomy Female Surgical History: Reports: Section Social & Family History - Family History Family Medical History: No Pertinent Family History - Tobacco Use Tobacco Use Status *Q: Current Some Day Tobacco User Years of Tobacco use: 10 Packs/Tins Daily: 0 - Alcohol Use Alcohol Use History: Yes Alcohol Use Frequency: Socially - Recreational Drug Use Recreational Drug Use: No ED ROS GENERAL - Review of Systems Review Of Systems: Comprehensive ROS is negative, except as noted in HPI. ED EXAM, GI/ABD - Physical Exam Exam: See Below Exam Limited By: No Limitations General Appearance: Alert, WD/WN, Moderate Distress Eyes: Bilateral: EOMI Throat/Mouth: Normal Inspection, Normal Lips, Normal Teeth, Normal Gums, Normal Oropharynx, Normal Voice, No Airway Compromise Head: Atraumatic, Normocephalic Neck: Normal Inspection, Supple, Non-Tender, Full Range of Motion Respiratory/Chest: No Respiratory Distress, Lungs Clear, Normal Breath Sounds, No Accessory Muscle Use, Chest Non-Tender Cardiovascular: Normal Peripheral Pulses, Regular Rate, Rhythm, No Edema, No Gallop, No JVD, No Murmur, No Rub GI/Abdominal Exam: Normal Bowel Sounds, Soft, Guarding (LLQ), Tender (LLQ). No: Rigid, Rebound Back Exam: Normal Inspection, Full Range of Motion. No: CVA Tenderness (L), CVA Tenderness (R) Extremities: Normal Inspection, Normal Range of Motion, Non-Tender, Normal Capillary Refill, No Pedal Edema Neurological: Alert, Oriented, CN II-XII Intact, Normal Cognition, Normal Gait, Normal Reflexes, No Motor/Sensory Deficits Psychiatric: Normal Affect, Normal Mood Skin Exam: Warm, Dry, Intact, Normal Color, No Rash Course - Vital Signs Last Recorded V/S: Last Vital Signs Temp 99.2 F 04/23/20 20:00 Pulse 97 04/23/20 20:00 Resp 16 04/23/20 20:00 BP 134/85 04/23/20 20:00 Pulse Ox 93 L 04/23/20 20:00 - Orders/Labs/Meds Orders: Active Orders 24 hr Category Date Time Status Abdomen Pelvis w Cont [CT] Stat Exams 04/23/20 09:01 Taken Lactated Ringers [Ringers, Lactated] 1,000 ml Med 04/23/20 10:00 Active IV ASDIRECTED Ondansetron [Zofran] Med 04/23/20 09:01 Active 4 mg IVPUSH Q6H PRN Medication Orders Acetaminophen (Tylenol) 650 mg PO Q4H PRN PRN Reason: Pain (Mild 1-3)/fever Last Admin: 04/23/20 15:47 Dose: 650 mg Documented by: DON Docusate Sodium (Colace) 100 mg PO BID PRN PRN Reason: Constipation Enoxaparin Sodium (Lovenox) 40 mg SUBCUT Q24H [facility] Last Admin: 04/23/20 20:00 Dose: 40 mg Documented by: JUVE Hydromorphone HCl (Dilaudid) 1 mg IVPUSH Q2H PRN PRN Reason: Pain (severe 7-10) Last Admin: 04/23/20 19:55 Dose: 1 mg Documented by: Admin: 04/23/20 16:35 Dose: 1 mg Documented by: KANDACE Lactated Ringer's (Ringers, Lactated) 1,000 mls @ 125 mls/hr IV ASDIRECTED [facility]IJAH Last Admin: 04/23/20 19:35 Dose: 125 mls/hr Documented by: Infusion: 04/23/20 18:39 Dose: 125 mls/hr Documented by: Admin: 04/23/20 10:39 Dose: 125 mls/hr Documented by: DON Levofloxacin/Dextrose 500 mg/ (Premix) 100 mls @ 100 mls/hr IV Q24H [facility] Metronidazole 500 mg/ Premix 100 mls @ 100 mls/hr IV Q8H [facility] Last Admin: 04/23/20 19:37 Dose: 100 mls/hr Documented by: JUVE Ketorolac Tromethamine (Toradol) 30 mg IVPUSH Q6H PRN PRN Reason: Pain (moderate 4-6) Ondansetron HCl (Zofran) 4 mg IVPUSH Q6H PRN PRN Reason: Other Last Admin: 04/23/20 15:38 Dose: 4 mg Documented by: Admin: 04/23/20 09:06 Dose: 4 mg Documented by: DON Polyethylene Glycol (Miralax) 17 gm PO DAILY PRN PRN Reason: Constipation Temazepam (Restoril) 15 mg PO BEDTIME PRN PRN Reason: Sleep Last Admin: 04/23/20 22:16 Dose: 15 mg Documented by: JUVE Labs: Laboratory Tests 04/23/20 04/23/20 04/23/20 Range/Units 08:58 09:08 09:08 WBC 6.5 (5.0-10.0) 10^3/uL RBC 4.49 (4.00-5.50) 10^6/uL Hgb 16.2 H (12.0-16.0) g/dL Hct 45.8 (37.0-47.0) % MCV 102.0 H (82.0-94.0) fL MCH 36.1 H (27.0-32.0) pg MCHC 35.4 (33.0-38.0) g/dL RDW Coeff of Ewa 13.6 (11.0-15.0) % Plt Count 107 L (150-400) 10^3/uL Neut % (Auto) 73.6 (35-85) % Lymph % (Auto) 14.9 (10-55) % [place] % (Auto) 9.8 (0-16) % Eos % (Auto) 1.4 (0-5) % Baso % (Auto) 0.3 (0-3) % Neut # (Auto) 4.81 (1.80-7.00) 10^3/uL Lymph # (Auto) 0.97 L (1.00-4.80) 10^3/uL [place] # (Auto) 0.64 (0.00-0.80) 10^3/uL Eos # (Auto) 0.09 (0.00-0.45) 10^3/uL Baso # (Auto) 0.02 10^3/uL Sodium 137 (136-145) mEq/L Potassium 3.6 (3.5-5.0) mEq/L Chloride 98 (98-106) mEq/L Carbon Dioxide 24 (21-32) mmol/L BUN 5 L (7-18) mg/dL Creatinine 0.8 (0.6-1.0) mg/dL Est Cr Clr Drug Dosing 91.81 mL/min Estimated GFR (MDRD) > 60 (>=60) mL/min Glucose 89 (75-99) mg/dL Calcium 9.2 (8.4-10.1) mg/dL Total Bilirubin 1.8 H (0.0-1.0) mg/dL AST 265 H (15-37) U/L ALT 199 H (12-78) U/L Alkaline Phosphatase 119 H (46-116) U/L C-Reactive Protein 3.1 H (0.2-0.8) mg/dL Total Protein 6.9 (6.4-8.2) g/dL Albumin 3.4 (3.4-5.0) g/dL Amylase 33 (25-115) U/L Lipase 298 (73-393) U/L Urine Color Dark yellow (YELLOW) Urine Appearance Slightly cloudy (CLEAR) Urine pH 6.0 (4.5-8.0) Ur Specific [place] >= 1.030 H (1.003-1.020) Urine Protein Negative (NEGATIVE) mg/dL Urine Glucose (UA) Negative (NEGATIVE) mg/dL Urine Ketones 40 H (NEGATIVE) mg/dL Urine Occult Blood Small H (NEGATIVE) Urine Nitrite Negative (NEGATIVE) Urine Bilirubin Small H (NEGATIVE) Urine Urobilinogen 0.2 (0.2-1.0) EU/dL Ur Leukocyte Esterase Negative (NEGATIVE) Urine RBC 5-10 H (0-5) /HPF Urine WBC 0-5 (0-5) /HPF Ur Squamous Epith Cells Many H (NOT SEEN) /HPF Urine Mucus Many H (NOT SEEN) /HPF Meds: Medications Generic Name Dose Route Start Last Admin Trade Name Freq PRN Reason Stop Dose Admin Acetaminophen 650 mg 04/23/20 14:49 04/23/20 15:47 Tylenol PO 650 mg Q4H PRN Administration Pain (Mild 1-3)/fever Docusate Sodium 100 mg 04/23/20 14:49 Colace PO BID PRN Constipation Enoxaparin Sodium 40 mg 04/23/20 20:00 04/23/20 20:00 Lovenox SUBCUT 40 mg Q24H ELIJAH Administration Hydromorphone HCl 1 mg 04/23/20 14:49 04/23/20 19:55 Dilaudid IVPUSH 1 mg Q2H PRN Administration Pain (severe 7-10) Lactated Ringer's 1,000 mls @ 125 mls/hr 04/23/20 10:00 04/23/20 19:35 Ringers, Lactated IV 125 mls/hr ASDIRECTED ELIJAH Administration Levofloxacin/Dextrose 500 mg/ 100 mls @ 100 mls/hr 04/24/20 12:00 Premix IV Q24H ELIJAH Metronidazole 500 mg/ Premix 100 mls @ 100 mls/hr 04/23/20 20:00 04/23/20 19:37 IV 100 mls/hr Q8H ELIJAH Administration Ketorolac Tromethamine 30 mg 04/23/20 14:49 Toradol IVPUSH Q6H PRN Pain (moderate 4-6) Ondansetron HCl 4 mg 04/23/20 09:01 04/23/20 15:38 Zofran IVPUSH 4 mg Q6H PRN Administration Other Polyethylene Glycol 17 gm 04/23/20 14:49 Miralax PO DAILY PRN Constipation Temazepam 15 mg 04/23/20 14:49 04/23/20 22:16 Restoril PO 15 mg BEDTIME PRN Administration Sleep Discontinued Medications Generic Name Dose Route Start Last Admin Trade Name Freq PRN Reason Stop Dose Admin Barium Sulfate 900 ml 04/23/20 11:48 04/23/20 12:02 Readi-Cat 2 PO 04/23/20 11:49 900 ml ONETIME ONE Administration Hydromorphone HCl 1 mg 04/23/20 09:53 04/23/20 10:00 Dilaudid IVPUSH 04/23/20 09:54 1 mg ONETIME ONE Administration Hydromorphone HCl 1 mg 04/23/20 11:42 04/23/20 11:53 Dilaudid IVPUSH 04/23/20 11:43 1 mg ONETIME ONE Administration Hydromorphone HCl 1 mg 04/23/20 13:59 04/23/20 14:09 Dilaudid IVPUSH 04/23/20 14:00 1 mg ONETIME ONE Administration Lactated Ringer's 1,000 mls @ 999 mls/hr 04/23/20 08:57 04/23/20 09:15 Ringers, Lactated IV 04/23/20 09:57 999 mls/hr .BOLUS ONE Administration Metronidazole 500 mg/ Premix 100 mls @ 100 mls/hr 04/23/20 12:18 04/23/20 12:25 IV 04/23/20 13:17 100 mls/hr ONETIME ONE Administration Levofloxacin/Dextrose 500 mg/ 100 mls @ 100 mls/hr 04/23/20 12:19 04/23/20 13:31 Premix IV 04/23/20 13:18 100 mls/hr ONETIME ONE Administration Ibuprofen 600 mg 04/23/20 14:49 Motrin PO Q6H PRN Pain (mild 1-3) Iopamidol 162 ml 04/23/20 09:20 04/23/20 12:01 Isovue-370 (76%) IV 04/23/20 09:21 162 ml ONETIME ONE Administration Ketorolac Tromethamine 30 mg 04/23/20 08:56 04/23/20 09:10 Toradol IVPUSH 04/23/20 08:57 30 mg ONETIME ONE Administration Departure - Departure Time of Disposition: 14:40 Disposition: Admitted As Inpatient 66 Condition: Fair Clinical Impression: Sigmoid diverticulitis - Discharge Information *PRESCRIPTION DRUG MONITORING PROGRAM REVIEWED*: Not Applicable *COPY OF PRESCRIPTION DRUG MONITORING REPORT IN PATIENT DOMINIQUE: Not Applicable Sepsis Event Note (ED) - Evaluation Sepsis Screening Result: No Definite Risk - Focused Exam Vital Signs: Vital Signs Temp Pulse Resp BP Pulse Ox 04/23/20 13:37 100.4 F 96 20 129/85 95 04/23/20 11:50 98.9 F 111 H 20 125/77 96 - Problem List & Annotations (1) Sigmoid diverticulitis SNOMED Code(s): 220469086 Code(s): K57.32 - DVTRCLI OF LG INT W/O PERFORATION OR ABSCESS W/O BLEEDING Status: Acute Priority: High Current Visit: Yes - My Orders Last 24 Hours: My Active Orders 04/23/20 09:01 Abdomen Pelvis w Cont [CT] Stat Ondansetron [Zofran] 4 mg IVPUSH Q6H PRN 04/23/20 10:00 Lactated Ringers [Ringers, Lactated] 1,000 ml IV ASDIRECTED - Assessment/Plan Last 24 Hours: My Active Orders 04/23/20 09:01 Abdomen Pelvis w Cont [CT] Stat Ondansetron [Zofran] 4 mg IVPUSH Q6H PRN 04/23/20 10:00 Lactated Ringers [Ringers, Lactated] 1,000 ml IV ASDIRECTED Assessment:: Sigmoid diverticulitis Plan: 39 yo presents to the ED with c/o 2 day history of LLQ abdominal pain. Does have known hx of diverticulitis. Labs reveal WBC 6.5 and CRP 3.1. Liver enzymes elevated, but appear they have been chronically. CT reveals sigmoid diverticulitis, in same area as 3 months ago, with questionable microperforation. Does also reveal fatty liver. Patients pain did improve after administration of dilaudid. Will admit to acute for IV antibiotics and pain control. Start Levaquin and Flagyl. Repeat labs in am. Discussed case with Dr. Coburn, who agrees with admission. Patient will need general surgery consult once acute infection resolved. This was discussed with her. Patient transferred to floor in satisfactory condition.
[2020-04-23] MEDS: metroNIDAZOLE/Normal Saline 500 MG in Premix Bag 1 BAG IV SCH (19:37)
[2020-04-23] MEDS: Enoxaparin 40 MG/0.4 ML Syringe SUBCUT SCH (20:00)
[2020-04-23] MEDS: Temazepam 15 MG Cap PO PRN (22:16)
[2020-04-24] MEDS: HYDROmorphone 1 MG/ML Syringe IVPUSH PRN ×4 (01:35→10:17)
[2020-04-24] MEDS: Lactated Ringers 1,000 ML IV SCH ×2 (04:22→22:10)
[2020-04-24] MEDS: metroNIDAZOLE/Normal Saline 500 MG in Premix Bag 1 BAG IV SCH ×3 (04:24→19:17)
[2020-04-24] MEDS: Acetaminophen 325 MG Tab PO PRN ×3 (04:32→23:19)
[2020-04-24 07:44] LABS: CHLORIDE,CL 100 mEq/L (98-106); SODIUM,NA 138 mEq/L (136-145)
[2020-04-24] MEDS: Levofloxacin/Dextrose 5%-Water 500 MG in Premix Bag 1 BAG IV SCH (11:47)
[2020-04-24] MEDS ORDERED: HYDROmorphone 1 MG/ML Syringe IVPUSH PRN (12:32)
[2020-04-24] MEDS: Acetaminophen/HYDROcodone 325-5 MG Tab PO PRN ×2 (14:08→19:15)
[2020-04-24] MEDS: Ibuprofen 200 MG Tab PO PRN (15:46)
--- NOTE | 2020-04-24 18:06 | PCM.PN ---
- General Info Date of Service: 04/24/20 Admission Dx/Problem (Free Text): Ravi is a 39 yo female who was admitted to the hospital on the 23 of April with diverticulitis. Has history of diverticulitis and reports she ate popcorn on Thursday. She reports pain started on the 22 of April and has since worsened since. She reports she had some "left over Augmentin" from last time so she started that on the as she was trying to avoid coming to the ED. No fevers on admits. Functional Status: Reports: Pain Controlled (with IV Dilaudid) - Review of Systems General: Reports: Fever HEENT: Reports: No Symptoms Pulmonary: Reports: No Symptoms Cardiovascular: Reports: No Symptoms Gastrointestinal: Reports: Abdominal Pain, Decreased Appetite. Denies: Constipation, Diarrhea, Hematochezia, Melena, Nausea, Vomiting Genitourinary: Reports: No Symptoms Musculoskeletal: Reports: No Symptoms Skin: Reports: No Symptoms Neurological: Reports: No Symptoms - Patient Data Vitals - Most Recent: Last Vital Signs Temp 99.8 F 04/24/20 16:46 Pulse 88 04/24/20 16:00 Resp 16 04/24/20 16:00 BP 123/76 04/24/20 16:00 Pulse Ox 94 L 04/24/20 16:00 Weight - Most Recent: 248 lb 11.2 oz I&O - Last 24 Hours: Intake & Output 04/24/20 04/24/20 04/24/20 06:59 14:59 22:59 Intake Total 1300 600 Output Total 150 400 Balance 1150 200 Lab Results Last 24 Hours: Laboratory Results - last 24 hr 04/24/20 04/24/20 Range/Units 07:00 07:00 WBC 6.9 (5.0-10.0) 10^3/uL RBC 3.76 L (4.00-5.50) 10^6/uL Hgb 14.0 (12.0-16.0) g/dL Hct 39.1 (37.0-47.0) % MCV 104.0 H (82.0-94.0) fL MCH 37.2 H (27.0-32.0) pg MCHC 35.8 (33.0-38.0) g/dL RDW Coeff of [place]wa 13.8 (11.0-15.0) % Plt Count 81 L (150-400) 10^3/uL Neut % (Auto) 78.1 (35-85) % Lymph % (Auto) 11.8 (10-55) % [place] % (Auto) 8.4 (0-16) % Eos % (Auto) 1.4 (0-5) % Baso % (Auto) 0.3 (0-3) % Neut # (Auto) 5.41 (1.80-7.00) 10^3/uL Lymph # (Auto) 0.82 L (1.00-4.80) 10^3/uL [place] # (Auto) 0.58 (0.00-0.80) 10^3/uL Eos # (Auto) 0.10 (0.00-0.45) 10^3/uL Baso # (Auto) 0.02 10^3/uL Sodium 138 (136-145) mEq/L Potassium 3.7 (3.5-5.0) mEq/L Chloride 100 (98-106) mEq/L Carbon Dioxide 29 (21-32) mmol/L BUN 8 D (7-18) mg/dL Creatinine 0.8 (0.6-1.0) mg/dL Est Cr Clr Drug Dosing 91.81 mL/min Estimated GFR (MDRD) > 60 (>=60) mL/min Glucose 93 (75-99) mg/dL Calcium 9.0 (8.4-10.1) mg/dL Total Bilirubin 2.0 H (0.0-1.0) mg/dL AST 109 H (15-37) U/L ALT 117 H (12-78) U/L Alkaline Phosphatase 88 (46-116) U/L C-Reactive Protein 18.0 H (0.2-0.8) mg/dL Total Protein 6.0 L (6.4-8.2) g/dL Albumin 2.7 L (3.4-5.0) g/dL Med Orders - Current: Current Medications Acetaminophen (Tylenol) 650 mg PO Q4H PRN PRN Reason: Pain (Mild 1-3)/fever Last Admin: 04/24/20 11:55 Dose: 650 mg Documented by: Hydrocodone Bitart/Acetaminophen ([place] 325-5 Mg) 1 tab PO Q4H PRN PRN Reason: Pain (severe 7-10) Last Admin: 04/24/20 14:08 Dose: 1 tab Documented by: Citalopram Hydrobromide (Celexa) 40 mg PO BEDTIME [facility] Docusate Sodium (Colace) 100 mg PO BID PRN PRN Reason: Constipation Enoxaparin Sodium (Lovenox) 40 mg SUBCUT Q24H [facility] Last Admin: 04/23/20 20:00 Dose: 40 mg Documented by: Hydromorphone HCl (Dilaudid) 1 mg IVPUSH Q4H PRN PRN Reason: Breakthrough Pain Lactated Ringer's (Ringers, Lactated) 1,000 mls @ 75 mls/hr IV ASDIRECTED [facility] Last Admin: 04/24/20 04:22 Dose: 125 mls/hr Documented by: Levofloxacin/Dextrose 500 mg/ (Premix) 100 mls @ 100 mls/hr IV Q24H [facility] Last Admin: 04/24/20 11:47 Dose: 100 mls/hr Documented by: Metronidazole 500 mg/ Premix 100 mls @ 100 mls/hr IV Q8H [facility] Last Admin: 04/24/20 13:13 Dose: 100 mls/hr Documented by: Ibuprofen (Motrin) 600 mg PO Q6H PRN PRN Reason: Pain/Fever Last Admin: 04/24/20 15:46 Dose: 600 mg Documented by: Ondansetron HCl (Zofran) 4 mg IVPUSH Q6H PRN PRN Reason: Other Last Admin: 04/23/20 15:38 Dose: 4 mg Documented by: Polyethylene Glycol (Miralax) 17 gm PO DAILY PRN PRN Reason: Constipation Temazepam (Restoril) 15 mg PO BEDTIME PRN PRN Reason: Sleep Last Admin: 04/23/20 22:16 Dose: 15 mg Documented by: Discontinued Medications Barium Sulfate (Readi-Cat 2) 900 ml PO ONETIME ONE Stop: 04/23/20 11:49 Last Admin: 04/23/20 12:02 Dose: 900 ml Documented by: Hydromorphone HCl (Dilaudid) 1 mg IVPUSH ONETIME ONE Stop: 04/23/20 09:54 Last Admin: 04/23/20 10:00 Dose: 1 mg Documented by: Hydromorphone HCl (Dilaudid) 1 mg IVPUSH ONETIME ONE Stop: 04/23/20 11:43 Last Admin: 04/23/20 11:53 Dose: 1 mg Documented by: Hydromorphone HCl (Dilaudid) 1 mg IVPUSH ONETIME ONE Stop: 04/23/20 14:00 Last Admin: 04/23/20 14:09 Dose: 1 mg Documented by: Hydromorphone HCl (Dilaudid) 1 mg IVPUSH Q2H PRN PRN Reason: Pain (severe 7-10) Last Admin: 04/24/20 10:17 Dose: 1 mg Documented by: Lactated Ringer's (Ringers, Lactated) 1,000 mls @ 999 mls/hr IV .BOLUS ONE Stop: 04/23/20 09:57 Last Admin: 04/23/20 09:15 Dose: 999 mls/hr Documented by: Metronidazole 500 mg/ Premix 100 mls @ 100 mls/hr IV ONETIME ONE Stop: 04/23/20 13:17 Last Admin: 04/23/20 12:25 Dose: 100 mls/hr Documented by: Levofloxacin/Dextrose 500 mg/ (Premix) 100 mls @ 100 mls/hr IV ONETIME ONE Stop: 04/23/20 13:18 Last Admin: 04/23/20 13:31 Dose: 100 mls/hr Documented by: Ibuprofen (Motrin) 600 mg PO Q6H PRN PRN Reason: Pain (mild 1-3) Iopamidol (Isovue-370 (76%)) 162 ml IV ONETIME ONE Stop: 04/23/20 09:21 Last Admin: 04/23/20 12:01 Dose: 162 ml Documented by: Ketorolac Tromethamine (Toradol) 30 mg IVPUSH ONETIME ONE Stop: 04/23/20 08:57 Last Admin: 04/23/20 09:10 Dose: 30 mg Documented by: Ketorolac Tromethamine (Toradol) 30 mg IVPUSH Q6H PRN PRN Reason: Pain (moderate 4-6) - Exam General: Alert, Oriented, Cooperative, No Acute Distress Lungs: Clear to Auscultation, Normal Respiratory Effort Cardiovascular: Regular Rate, Regular Rhythm, No Murmurs GI/Abdominal Exam: Normal Bowel Sounds Sepsis Event Note - Evaluation Sepsis Screening Result: No Definite Risk - Focused Exam Vital Signs: Vital Signs Temp Temp Pulse Resp BP Pulse Ox 04/24/20 16:46 99.8 F 04/24/20 16:00 99.8 F 88 16 123/76 94 L 04/24/20 15:46 101.3 F H 04/24/20 12:00 100.1 F 96 20 130/85 90 L 04/24/20 07:29 99.6 F 93 20 121/78 94 L - Problem List & Annotations (1) Sigmoid diverticulitis SNOMED Code(s): 358811667 Code(s): K57.32 - DVTRCLI OF LG INT W/O PERFORATION OR ABSCESS W/O BLEEDING Status: Acute Priority: High Current Visit: Yes (2) Abdominal pain SNOMED Code(s): 25047402 Code(s): R10.9 - UNSPECIFIED ABDOMINAL PAIN Status: Acute Priority: High Current Visit: No Qualifiers: Abdominal location: left lower quadrant Qualified Code(s): R10.32 - Left lower quadrant pain - Problem List Review Problem List Initiated/Reviewed/Updated: Yes - My Orders Last 24 Hours: My Active Orders 04/24/20 12:32 Acetaminophen/HYDROcodone [[place] 325-5 MG] 1 tab PO Q4H PRN 04/24/20 20:00 Citalopram [Celexa] 40 mg PO BEDTIME - Plan Plan:: 04/24/2020 Estefany is feeling a little better today. Requesting a diet coke. States she continues to have discomfort but feels she is gradually getting better. States with the pain medication and Tylenol it does feel a lot better. Will continue IV antibiotics and closely monitor.
[2020-04-24] MEDS: Enoxaparin 40 MG/0.4 ML Syringe SUBCUT SCH (19:16)
[2020-04-24] MEDS ORDERED: Citalopram 10 MG Tab PO SCH (20:00)
[2020-04-24] MEDS: Temazepam 15 MG Cap PO PRN (22:09)
[2020-04-25] MEDS: metroNIDAZOLE/Normal Saline 500 MG in Premix Bag 1 BAG IV SCH ×2 (03:08→11:41)
[2020-04-25] MEDS: Acetaminophen/HYDROcodone 325-5 MG Tab PO PRN (04:39)
[2020-04-25 07:31] LABS: CHLORIDE,CL 97 mEq/L (98-106); SODIUM,NA 134 mEq/L (136-145)
[2020-04-25] MEDS: Ibuprofen 200 MG Tab PO PRN (07:38)
--- NOTE | 2020-04-25 09:13 | PCM.PN ---
- General Info Date of Service: 04/25/20 Admission Dx/Problem (Free Text): Ravi is a 39 yo female who was admitted to the hospital on the 23 of April with diverticulitis. Has history of diverticulitis and reports she ate popcorn on Thursday. She reports pain started on the 22 of April and has since worsened since. She reports she had some "left over Augmentin" from last time so she started that on the as she was trying to avoid coming to the ED. No fevers on admits. Functional Status: Reports: Pain Controlled, Ambulating - Review of Systems General: Reports: Fever HEENT: Reports: No Symptoms Pulmonary: Reports: No Symptoms Cardiovascular: Reports: No Symptoms Gastrointestinal: Reports: Abdominal Pain (improving), Decreased Appetite. Denies: Diarrhea, Hematochezia, Melena, Nausea, Vomiting Genitourinary: Reports: No Symptoms Musculoskeletal: Reports: No Symptoms Skin: Reports: No Symptoms Neurological: Reports: No Symptoms - Patient Data Vitals - Most Recent: Last Vital Signs Temp 99.0 F 04/25/20 07:38 Pulse 88 04/25/20 07:32 Resp 18 04/25/20 07:32 BP 133/94 H 04/25/20 07:32 Pulse Ox 94 L 04/25/20 07:32 Weight - Most Recent: 248 lb 11.2 oz I&O - Last 24 Hours: Intake & Output 04/24/20 04/25/20 04/25/20 22:59 06:59 14:59 Intake Total 1260 500 Output Total 650 750 Balance 610 -250 Lab Results Last 24 Hours: Laboratory Results - last 24 hr 04/25/20 04/25/20 Range/Units 06:35 06:35 WBC 6.8 (5.0-10.0) 10^3/uL RBC 3.47 L (4.00-5.50) 10^6/uL Hgb 13.0 (12.0-16.0) g/dL Hct 36.2 L (37.0-47.0) % MCV 104.3 H (82.0-94.0) fL MCH 37.5 H (27.0-32.0) pg MCHC 35.9 (33.0-38.0) g/dL RDW Coeff of Ewa 13.6 (11.0-15.0) % Plt Count 70 L (150-400) 10^3/uL Neut % (Auto) 80.3 (35-85) % Lymph % (Auto) 9.1 L (10-55) % [place] % (Auto) 8.5 (0-16) % Eos % (Auto) 1.8 (0-5) % Baso % (Auto) 0.3 (0-3) % Neut # (Auto) 5.45 (1.80-7.00) 10^3/uL Lymph # (Auto) 0.62 L (1.00-4.80) 10^3/uL [place] # (Auto) 0.58 (0.00-0.80) 10^3/uL Eos # (Auto) 0.12 (0.00-0.45) 10^3/uL Baso # (Auto) 0.02 10^3/uL Sodium 134 L (136-145) mEq/L Potassium 3.7 (3.5-5.0) mEq/L Chloride 97 L (98-106) mEq/L Carbon Dioxide 29 (21-32) mmol/L BUN 5 L (7-18) mg/dL Creatinine 0.8 (0.6-1.0) mg/dL Est Cr Clr Drug Dosing 91.81 mL/min Estimated GFR (MDRD) > 60 (>=60) mL/min Glucose 94 (75-99) mg/dL Calcium 8.8 (8.4-10.1) mg/dL Total Bilirubin 2.2 H (0.0-1.0) mg/dL AST 61 H (15-37) U/L ALT 81 H (12-78) U/L Alkaline Phosphatase 86 (46-116) U/L C-Reactive Protein 34.8 H (0.2-0.8) mg/dL Total Protein 6.0 L (6.4-8.2) g/dL Albumin 2.5 L (3.4-5.0) g/dL Med Orders - Current: Current Medications Acetaminophen (Tylenol) 650 mg PO Q4H PRN PRN Reason: Pain (Mild 1-3)/fever Last Admin: 04/24/20 23:19 Dose: 650 mg Documented by: Hydrocodone Bitart/Acetaminophen ([place] 325-5 Mg) 1 tab PO Q4H PRN PRN Reason: Pain (severe 7-10) Last Admin: 04/25/20 04:39 Dose: 1 tab Documented by: Citalopram Hydrobromide (Celexa) 40 mg PO BEDTIME [facility] Last Admin: 04/24/20 19:14 Dose: 40 mg Documented by: Docusate Sodium (Colace) 100 mg PO BID PRN PRN Reason: Constipation Enoxaparin Sodium (Lovenox) 40 mg SUBCUT Q24H [facility] Last Admin: 04/24/20 19:16 Dose: 40 mg Documented by: Hydromorphone HCl (Dilaudid) 1 mg IVPUSH Q4H PRN PRN Reason: Breakthrough Pain Lactated Ringer's (Ringers, Lactated) 1,000 mls @ 75 mls/hr IV ASDIRECTED [facility] Last Admin: 04/24/20 22:10 Dose: 125 mls/hr Documented by: Levofloxacin/Dextrose 500 mg/ (Premix) 100 mls @ 100 mls/hr IV Q24H [facility] Last Admin: 04/24/20 11:47 Dose: 100 mls/hr Documented by: Metronidazole 500 mg/ Premix 100 mls @ 100 mls/hr IV Q8H [facility] Last Admin: 04/25/20 03:08 Dose: 100 mls/hr Documented by: Ibuprofen (Motrin) 600 mg PO Q6H PRN PRN Reason: Pain/Fever Last Admin: 04/25/20 07:38 Dose: 600 mg Documented by: Ondansetron HCl (Zofran) 4 mg IVPUSH Q6H PRN PRN Reason: Other Last Admin: 04/23/20 15:38 Dose: 4 mg Documented by: Polyethylene Glycol (Miralax) 17 gm PO DAILY PRN PRN Reason: Constipation Temazepam (Restoril) 15 mg PO BEDTIME PRN PRN Reason: Sleep Last Admin: 04/24/20 22:09 Dose: 15 mg Documented by: Discontinued Medications Barium Sulfate (Readi-Cat 2) 900 ml PO ONETIME ONE Stop: 04/23/20 11:49 Last Admin: 04/23/20 12:02 Dose: 900 ml Documented by: Hydromorphone HCl (Dilaudid) 1 mg IVPUSH ONETIME ONE Stop: 04/23/20 09:54 Last Admin: 04/23/20 10:00 Dose: 1 mg Documented by: Hydromorphone HCl (Dilaudid) 1 mg IVPUSH ONETIME ONE Stop: 04/23/20 11:43 Last Admin: 04/23/20 11:53 Dose: 1 mg Documented by: Hydromorphone HCl (Dilaudid) 1 mg IVPUSH ONETIME ONE Stop: 04/23/20 14:00 Last Admin: 04/23/20 14:09 Dose: 1 mg Documented by: Hydromorphone HCl (Dilaudid) 1 mg IVPUSH Q2H PRN PRN Reason: Pain (severe 7-10) Last Admin: 04/24/20 10:17 Dose: 1 mg Documented by: Lactated Ringer's (Ringers, Lactated) 1,000 mls @ 999 mls/hr IV .BOLUS ONE Stop: 04/23/20 09:57 Last Admin: 04/23/20 09:15 Dose: 999 mls/hr Documented by: Metronidazole 500 mg/ Premix 100 mls @ 100 mls/hr IV ONETIME ONE Stop: 04/23/20 13:17 Last Admin: 04/23/20 12:25 Dose: 100 mls/hr Documented by: Levofloxacin/Dextrose 500 mg/ (Premix) 100 mls @ 100 mls/hr IV ONETIME ONE Stop: 04/23/20 13:18 Last Admin: 04/23/20 13:31 Dose: 100 mls/hr Documented by: Ibuprofen (Motrin) 600 mg PO Q6H PRN PRN Reason: Pain (mild 1-3) Iopamidol (Isovue-370 (76%)) 162 ml IV ONETIME ONE Stop: 04/23/20 09:21 Last Admin: 04/23/20 12:01 Dose: 162 ml Documented by: Ketorolac Tromethamine (Toradol) 30 mg IVPUSH ONETIME ONE Stop: 04/23/20 08:57 Last Admin: 04/23/20 09:10 Dose: 30 mg Documented by: Ketorolac Tromethamine (Toradol) 30 mg IVPUSH Q6H PRN PRN Reason: Pain (moderate 4-6) - Exam General: Alert, Oriented, Cooperative, No Acute Distress Lungs: Clear to Auscultation, Normal Respiratory Effort Cardiovascular: Regular Rate, Regular Rhythm, No Murmurs GI/Abdominal Exam: Soft, Guarding, Tender (LLQ), Abnormal Bowel Sounds (hypoactive). No: Distended, Hernia, Mass Extremities: Normal Inspection, No Pedal Edema Skin: Warm, Dry, Intact Neurological: No New Focal Deficit Psy/Mental Status: Alert, Normal Affect, Normal Mood Sepsis Event Note - Evaluation Sepsis Screening Result: No Definite Risk - Focused Exam Vital Signs: Vital Signs Temp Temp Pulse Resp BP BP Pulse Ox 04/25/20 07:38 99.0 F 04/25/20 07:32 99.0 F 88 18 133/94 H 94 L 04/25/20 03:03 98.8 F 85 20 122/86 96 04/24/20 23:18 100.2 F 87 20 122/75 93 L 04/24/20 22:00 98.4 F - Problem List & Annotations (1) Sigmoid diverticulitis SNOMED Code(s): 326474624 Code(s): K57.32 - DVTRCLI OF LG INT W/O PERFORATION OR ABSCESS W/O BLEEDING Status: Acute Priority: High Current Visit: Yes (2) Abdominal pain SNOMED Code(s): 53053157 Code(s): R10.9 - UNSPECIFIED ABDOMINAL PAIN Status: Acute Priority: High Current Visit: No Qualifiers: Abdominal location: left lower quadrant Qualified Code(s): R10.32 - Left lower quadrant pain - Problem List Review Problem List Initiated/Reviewed/Updated: Yes - My Orders Last 24 Hours: My Active Orders 04/24/20 12:32 Acetaminophen/HYDROcodone [[place] 325-5 MG] 1 tab PO Q4H PRN 04/24/20 20:00 Citalopram [Celexa] 40 mg PO BEDTIME 04/25/20 Breakfast Clear Liquid Diet [DIET] - Plan Plan:: 04/24/2020 Estefany is feeling a little better today. Requesting a diet coke. States she continues to have discomfort but feels she is gradually getting better. States with the pain medication and Tylenol it does feel a lot better. Will continue IV antibiotics and closely monitor. 04/25/2020 Edgar states she is gradually feeling better. States on admission pain was a 10 out of 10 and finds it now to be a 5 out of 10 when the pain medications wear off. She states she still feels low grade fevers but the ibuprofen rey help. States she has been getting up and was able to shower without complication. States before when she would get up she had a lot of discomfort and would make her hunch over. She requests to continue being treated here and we discussed continuing close observation. Advise if pain does worsen, CRP continues to elevate as it did this am, or any concerns with perforation will plan for discharge to larger facility with surgical intervention capabilities. Patient in agreement.
[2020-04-25] MEDS ORDERED: Iopamidol 755 Mg/ML 100 ML Bottle IVPUSH ONE (10:05)
[2020-04-25] MEDS ORDERED: Piperacillin/Tazobactam 3.375 GM in Sodium Chloride 0.9% 100 ML IV ONE (10:52)
[2020-04-25] MEDS: Levofloxacin/Dextrose 5%-Water 500 MG in Premix Bag 1 BAG IV SCH (11:41)
--- NOTE | 2020-04-25 12:18 | PCM.DCSUM1 ---
Discharge Summary - Hospital Course Free Text/Narrative:: Ravi is a 39 yo female who was admitted to the hospital on the 23 of April with diverticulitis of the sigmoid colon. Was started on IV Levaquin and Flagyl. Patient had low grade fevers on admit and would continue to have low grade fevers up till this morning. Tylenol and ibuprofen would break the fevers. Patient continued to have discomfort with ambulation and rest in the LLQ but had significantly improved since admission. Unfortunately, patient did get up to use the bathroom this morning and felt a pop and immediate sharp pain in the left lower quadrant. Diagnosis: Stroke: No - Discharge Data Discharge Date: 04/25/20 Discharge Disposition: DC/Tfer to Acute Hospital 02 Condition: Stable - Referral to Home Health Primary Care Physician: Keyla Flower NP - Discharge Diagnosis/Problem(s) (1) Abdominal pain SNOMED Code(s): 81024129 ICD Code: R10.9 - UNSPECIFIED ABDOMINAL PAIN Status: Acute Priority: High Current Visit: No Qualifiers: Abdominal location: left lower quadrant Qualified Code(s): R10.32 - Left lower quadrant pain (2) Diverticulitis of intestine with perforation without abscess SNOMED Code(s): 896922698, 426259623 ICD Code: K57.80 - DVTRCLI OF INTEST, PART UNSP, W PERF AND ABSCESS W/O BLEED Status: Acute Current Visit: Yes Qualifiers: Diverticulitis site: large intestine Diverticulitis bleeding: without bleeding Qualified Code(s): K57.20 - Diverticulitis of large intestine with perforation and abscess without bleeding - Patient Summary/Data Consults: Dr. Mccall - general surgeon [facility] Dr. Sheth - hospitalist [place] [facility] Course: Ravi was seeing improvement in discomfort up until this morning when she felt a pop and severe pain in the LLQ. Laboratory work did continue to show normal WBC with increasing CRP level. At admission CRP was 3.1 with significant increase to 34.8 today. Patient overall was being transitioned to oral pain medications from IV and was tolerating advancement to clear liquid diet. - Discharge Plan *PRESCRIPTION DRUG MONITORING PROGRAM REVIEWED*: Not Applicable *COPY OF PRESCRIPTION DRUG MONITORING REPORT IN PATIENT DOMINIQUE: Not Applicable Home Medications: Home Meds Escitalopram Oxalate [Lexapro] 20 mg PO BEDTIME 04/27/19 [History] Forms: ED Department Discharge Referrals: Keyla Flower, PROGRAMMING COORDINATOR [Primary Care Provider] - - Discharge Summary/Plan Comment DC Time >30 min.: Yes Discharge Summary/Plan Comment: After patient had sharp increased discomfort abruptly CT scan was completed to show 4cm perforation. Patient will be discharged from local facility with direct admit to [facility] in [place]. Dr. Mccall, general surgeon, initially consulted. Recommended consultation with hospital service with general surgery consult. Dr. Sheth, hospitalist, consulted and kindly accepted transfer. Discussed current treatment plan, results, etc... with patient and in agreement with being transferred to higher level of care. Risks and benefits of transfer discussed into detail. Risk of transfer included worsening of condition, MVA, increased discomfort. Benefits of transfer included higher level of care, appropriate interventions, hospitalist, etc... Risks of non transfer included worsening of condition, sepsis, increased discomfort, no surgical capabilities if needed. Benefits of non-transfer included staying in familiar environment, close to home. Patient verbalized understanding and agrees to transfer via ALS for monitoring, pain control en route. - General Info Functional Status: Reports: Pain Controlled - Review of Systems General: Reports: Fever HEENT: Reports: No Symptoms Pulmonary: Reports: No Symptoms Cardiovascular: Reports: No Symptoms Gastrointestinal: Reports: Abdominal Pain, Decreased Appetite. Denies: Diarrhea (states no diarrhea today but loose stool), Hematochezia, Melena, Nausea, Vomiting Genitourinary: Reports: No Symptoms Musculoskeletal: Reports: No Symptoms Neurological: Reports: No Symptoms Psychiatric: Reports: No Symptoms - Patient Data Vitals - Most Recent: Last Vital Signs Temp 98.0 F 04/25/20 08:38 Pulse 88 04/25/20 07:32 Resp 18 04/25/20 07:32 BP 133/94 H 04/25/20 07:32 Pulse Ox 94 L 04/25/20 07:32 Weight - Most Recent: 248 lb 11.2 oz I&O - Last 24 hours: Intake & Output 04/24/20 04/25/20 04/25/20 22:59 06:59 14:59 Intake Total 1260 500 Output Total 650 750 Balance 610 -250 Lab Results - Last 24 hrs: Laboratory Results - last 24 hr 12/04/25/20 04/25/20 Range/Units 06:35 06:35 10:50 WBC 6.8 (5.0-10.0) 10^3/uL RBC 3.47 L (4.00-5.50) 10^6/uL Hgb 13.0 (12.0-16.0) g/dL Hct 36.2 L (37.0-47.0) % MCV 104.3 H (82.0-94.0) fL MCH 37.5 H (27.0-32.0) pg MCHC 35.9 (33.0-38.0) g/dL RDW Coeff of Ewa 13.6 (11.0-15.0) % Plt Count 70 L (150-400) 10^3/uL Neut % (Auto) 80.3 (35-85) % Lymph % (Auto) 9.1 L (10-55) % Addison % (Auto) 8.5 (0-16) % Eos % (Auto) 1.8 (0-5) % Baso % (Auto) 0.3 (0-3) % Neut # (Auto) 5.45 (1.80-7.00) 10^3/uL Lymph # (Auto) 0.62 L (1.00-4.80) 10^3/uL Addison # (Auto) 0.58 (0.00-0.80) 10^3/uL Eos # (Auto) 0.12 (0.00-0.45) 10^3/uL Baso # (Auto) 0.02 10^3/uL Sodium 134 L (136-145) mEq/L Potassium 3.7 (3.5-5.0) mEq/L Chloride 97 L (98-106) mEq/L Carbon Dioxide 29 (21-32) mmol/L BUN 5 L (7-18) mg/dL Creatinine 0.8 (0.6-1.0) mg/dL Est Cr Clr Drug Dosing 91.81 mL/min Estimated GFR (MDRD) > 60 (>=60) mL/min Glucose 94 (75-99) mg/dL Calcium 8.8 (8.4-10.1) mg/dL Total Bilirubin 2.2 H (0.0-1.0) mg/dL AST 61 H (15-37) U/L ALT 81 H (12-78) U/L Alkaline Phosphatase 86 (46-116) U/L C-Reactive Protein 34.8 H (0.2-0.8) mg/dL Total Protein 6.0 L (6.4-8.2) g/dL Albumin 2.5 L (3.4-5.0) g/dL SARS CoV-2 RNA Rapid MEEK Negative (NEGATIVE) Med Orders - Current: Current Medications Acetaminophen (Tylenol) 650 mg PO Q4H PRN PRN Reason: Pain (Mild 1-3)/fever Last Admin: 04/24/20 23:19 Dose: 650 mg Documented by: Hydrocodone Bitart/Acetaminophen (Elrod 325-5 Mg) 1 tab PO Q4H PRN PRN Reason: Pain (severe 7-10) Last Admin: 04/25/20 04:39 Dose: 1 tab Documented by: Citalopram Hydrobromide (Celexa) 40 mg PO BEDTIME [facility] Last Admin: 04/24/20 19:14 Dose: 40 mg Documented by: Docusate Sodium (Colace) 100 mg PO BID PRN PRN Reason: Constipation Enoxaparin Sodium (Lovenox) 40 mg SUBCUT Q24H [facility] Last Admin: 04/24/20 19:16 Dose: 40 mg Documented by: Hydromorphone HCl (Dilaudid) 1 mg IVPUSH Q4H PRN PRN Reason: Breakthrough Pain Last Admin: 04/25/20 09:09 Dose: 1 mg Documented by: Lactated Ringer's (Ringers, Lactated) 1,000 mls @ 75 mls/hr IV ASDIRECTED [facility] Last Admin: 04/24/20 22:10 Dose: 125 mls/hr Documented by: Levofloxacin/Dextrose 500 mg/ (Premix) 100 mls @ 100 mls/hr IV Q24H [facility] Last Admin: 04/25/20 11:41 Dose: Not Given Documented by: Metronidazole 500 mg/ Premix 100 mls @ 100 mls/hr IV Q8H [facility] Last Admin: 04/25/20 11:41 Dose: Not Given Documented by: Ibuprofen (Motrin) 600 mg PO Q6H PRN PRN Reason: Pain/Fever Last Admin: 04/25/20 07:38 Dose: 600 mg Documented by: Ondansetron HCl (Zofran) 4 mg IVPUSH Q6H PRN PRN Reason: Other Last Admin: 04/23/20 15:38 Dose: 4 mg Documented by: Polyethylene Glycol (Miralax) 17 gm PO DAILY PRN PRN Reason: Constipation Temazepam (Restoril) 15 mg PO BEDTIME PRN PRN Reason: Sleep Last Admin: 04/24/20 22:09 Dose: 15 mg Documented by: Discontinued Medications Barium Sulfate (Readi-Cat 2) 900 ml PO ONETIME ONE Stop: 04/23/20 11:49 Last Admin: 04/23/20 12:02 Dose: 900 ml Documented by: Hydromorphone HCl (Dilaudid) 1 mg IVPUSH ONETIME ONE Stop: 04/23/20 09:54 Last Admin: 04/23/20 10:00 Dose: 1 mg Documented by: Hydromorphone HCl (Dilaudid) 1 mg IVPUSH ONETIME ONE Stop: 04/23/20 11:43 Last Admin: 04/23/20 11:53 Dose: 1 mg Documented by: Hydromorphone HCl (Dilaudid) 1 mg IVPUSH ONETIME ONE Stop: 04/23/20 14:00 Last Admin: 04/23/20 14:09 Dose: 1 mg Documented by: Hydromorphone HCl (Dilaudid) 1 mg IVPUSH Q2H PRN PRN Reason: Pain (severe 7-10) Last Admin: 04/24/20 10:17 Dose: 1 mg Documented by: Lactated Ringer's (Ringers, Lactated) 1,000 mls @ 999 mls/hr IV .BOLUS ONE Stop: 04/23/20 09:57 Last Admin: 04/23/20 09:15 Dose: 999 mls/hr Documented by: Metronidazole 500 mg/ Premix 100 mls @ 100 mls/hr IV ONETIME ONE Stop: 04/23/20 13:17 Last Admin: 04/23/20 12:25 Dose: 100 mls/hr Documented by: Levofloxacin/Dextrose 500 mg/ (Premix) 100 mls @ 100 mls/hr IV ONETIME ONE Stop: 04/23/20 13:18 Last Admin: 04/23/20 13:31 Dose: 100 mls/hr Documented by: Piperacillin Sod/Tazobactam (Sod 3.375 gm/ Sodium Chloride) 100 mls @ 200 mls/hr IV STAT ONE Stop: 04/25/20 11:21 Last Admin: 04/25/20 11:19 Dose: 200 mls/hr Documented by: Ibuprofen (Motrin) 600 mg PO Q6H PRN PRN Reason: Pain (mild 1-3) Iopamidol (Isovue-370 (76%)) 162 ml IV ONETIME ONE Stop: 04/23/20 09:21 Last Admin: 04/23/20 12:01 Dose: 162 ml Documented by: Iopamidol (Isovue-370 (76%)) 100 ml IVPUSH ONETIME ONE Stop: 04/25/20 10:06 Last Admin: 04/25/20 10:24 Dose: 100 ml Documented by: Ketorolac Tromethamine (Toradol) 30 mg IVPUSH ONETIME ONE Stop: 04/23/20 08:57 Last Admin: 04/23/20 09:10 Dose: 30 mg Documented by: Ketorolac Tromethamine (Toradol) 30 mg IVPUSH Q6H PRN PRN Reason: Pain (moderate 4-6) - Exam General: Reports: Alert, Oriented, Cooperative, Mild Distress Lungs: Reports: Clear to Auscultation, Normal Respiratory Effort Cardiovascular: Reports: Regular Rate, Regular Rhythm, No Murmurs GI/Abdominal Exam: No Mass, Guarding, Tender (LLQ), Abnormal Bowel Sounds (hypoactive). No: Distended, Mass Skin: Reports: Warm, Dry, Intact Neurological: Reports: No New Focal Deficit Psy/Mental Status: Reports: Alert, Normal Affect, Normal Mood
== END 2020-04-25 11:58 | DRG 244 ==
LOC: CC.ED 08:24 → CC.MS 14:34 → CC.ED 14:45 → UNDOADMIN 14:48 → CC.MS 14:48
PROVIDERS: ADMIT Nurse Practitioner Family; ATTEND Family Medicine
DX: K57.80 Diverticulitis of intestine, part unspecified, with perforation and abscess without bleeding (principal); Z20.828 Contact with and (suspected) exposure to other viral communicable diseases; F41.9 Anxiety disorder, unspecified; Z90.49 Acquired absence of other specified parts of digestive tract
CPT/HCPCS: 36415; 74177; 80053; 81001; 82150; 83690; 85025; 86140; 86769; 96365; 96367; 96375; 96376; 99285-25; A9270-GY; J1170; J1650; J1885; J1956; J2405; J2543; J3490; J7050; J7120; Q9967; U0002

== ENCOUNTER 2022-07-14 09:35 | Emergency (ER) | payer BC ==
[2022-07-14] MEDS ORDERED: Ketorolac 30 MG/ML SDV IVPUSH ONE (10:34)
[2022-07-14] MEDS ORDERED: Dexamethasone 10 MG/ML SDV IVPUSH ONE (10:35)
[2022-07-14] MEDS ORDERED: Orphenadrine 60 MG/2 ML Inj IV STA (10:35)
== END 2022-07-14 12:31 | disposition home or self-care (01) ==
LOC: CC.ED 09:35
DX: M54.16 Radiculopathy, lumbar region (principal); Z88.1 Allergy status to other antibiotic agents
CPT/HCPCS: 96374; 96375; 99284-25; J1100; J1885; J2360